=== PATIENT | female | born 1980 | race Caucasian/White ===

== ENCOUNTER 2017-01-14 21:44 | Emergency (ER) | payer BC ==
[2017-01-14 21:51] VITALS: BP 104/74; PULSE 72; RESP 16; TEMP 98.8; O2SAT 100
--- NOTE | 2017-01-14 22:13 | ED PDOC ---
Lower Extremity Pain/Injury Time Seen by Provider: 01/14/17 21:49 Chief Complaint (Nursing): Lower Extremity Problem/Injury Chief Complaint (Provider): left foot pain History Per: Patient History/Exam Limitations: no limitations Additional Complaint(s): 36yo F in ED for eval of left foot injury sustained today after banging foot against wooden chair and now with pain, swelling inability to move 5th digit with discoloration. Past Medical History Reviewed: Historical Data, Nursing Documentation, Vital Signs Vital Signs: Last Vital Signs Temp 98.8 F 01/14/17 21:49 Pulse 72 01/14/17 21:49 Resp 16 01/14/17 21:49 BP 104/74 01/14/17 21:49 Pulse Ox 100 01/14/17 21:49 - Medical History PMH: No Chronic Diseases - Family History Family History: States: No Known Family Hx - Allergies Allergies/Adverse Reactions: Allergies Allergy/AdvReac Type Severity Reaction Status Date / Time No Known Allergies Allergy Verified 01/14/17 21:48 Wells Criteria for PE - Wells Criteria for Pulmonary Embolism Clinical Signs and Symptoms of DVT: No P.E is #1 Diagnosis, or Equally Likely: No Heart Rate >100: No Immobilization at least 3 days;Surgery previous 4 weeks: No Previous, objectively diagnosed PE or DVT: No Hemoptysis: No Malignancy w/treatment within 6 months, or palliative: No Total Score: 0 Review of Systems Musculoskeletal: Positive for: Foot Pain Physical Exam - Reviewed Nursing Documentation Reviewed: Yes Vital Signs Reviewed: Yes - Physical Exam Appears: Positive for: Well, Non-toxic, No Acute Distress Skin: Positive for: Normal Color, Warm, DRY Extremity: Positive for: Other Neurologic/Psych: Positive for: Alert, Oriented - ECG O2 Sat by Pulse Oximetry: 100 - Radiology X-Ray: Interpreted by Me (fx noted to fifth digit ) Medical Decision Making Medical Decision Making: pt will get luis manuel tape and surgical shoe with limited wght bearing and f.u with podiatry. motrin as needed Disposition - Clinical Impression Clinical Impression: Toe fracture - Patient ED Disposition Is Patient to be Admitted: No Counseled Patient/Family Regarding: Studies Performed, Diagnosis, Need For Followup - Disposition Referrals: Podiatry Clinic [Outside] Disposition: Routine/Home Disposition Time: 22:21 Condition: STABLE Instructions: Toe Fracture (ED)
--- NOTE | 2017-01-15 14:58 | RAD ---
PROCEDURE: Left Foot Radiographs. HISTORY: Posttraumatic 5th digit injury COMPARISON: None. FINDINGS: BONES: Cortical irregularity distal aspect proximal phalanx 5th digit. The finding is marked on the study for review. Old fracture fifth metatarsal. Postoperative findings 1st metatarsal. JOINTS: Normal. SOFT TISSUES: Normal. OTHER FINDINGS: None. IMPRESSION: Fracture proximal phalanx 5th digit. This extends to the articular surface.
== END 2017-01-14 22:46 | disposition home or self-care (01) ==
LOC: H.ER 21:44
DX: S92.501A Displaced unspecified fracture of right lesser toe(s), initial encounter for closed fracture (principal); W22.03XA Walked into furniture, initial encounter